=== PATIENT | female | born 1930 | race Caucasian/White ===

== ENCOUNTER → 2016-10-10 | Outpatient (CLI) | payer MEDICARE, OTHER ==
[2016-10-10 11:19] LABS: CH 30.8; CHCM 32.9; HCT 38.1 % (34.0-46.0); HDW 2.79; HGB 12.4 gm/dL (11.4-16.0); MCH 30.7 pg (25.0-35.0); MCHC 32.6 g/dL (31.0-37.0); MCV 94.1 fL (80.0-100.0); RBC 4.05 m/uL (3.80-5.40); RDW 12.9 % (11.5-15.5); WBC 4.3 k/uL (3.8-10.6)
[2016-10-10 11:44] LABS: ALT 30 U/L (9-52); AST 30 U/L (14-36); Alkaline Phosphatase 105 U/L (38-126); Anion Gap 10 mmol/L; Blood Urea Nitrogen 26 mg/dL (7-17); Calcium 9.5 mg/dL (8.4-10.2); Carbon Dioxide 27 mmol/L (22-30); Chloride 103 mmol/L (98-107); Glucose 101 mg/dL (74-99); Non-African American GFR(MDRD) >60 (>60 ml/min/1.73 sqM); Potassium 4.2 mmol/L (3.5-5.1); Sodium 140 mmol/L (137-145); Total Bilirubin 0.7 mg/dL (0.2-1.3); Total Protein 7.4 g/dL (6.3-8.2)
--- NOTE | 2016-10-10 13:16 | XR ---
EXAMINATION TYPE: XR chest 2V DATE OF EXAM: 10/10/2016 11:22 AM COMPARISON: 09/09/2015 HISTORY: 85 year-old female right lung carcinoma TECHNIQUE: Frontal and lateral views FINDINGS: The heart is mildly enlarged. Atherosclerotic arch calcifications. Mild diffuse interstitial prominen ce and hyperinflation with increased retrosternal clear space. Surgical clips at the right hilum. No consolidation or pleural effusion. Anterior endplate spondylosis in the thoracic spine. IMPRESSION: Cardiomegaly and COPD. No acute process seen.
== END | disposition home or self-care (01) ==
LOC: LABWHC1 10:57
PROVIDERS: ATTEND Thoracic Surgery (Cardiothoracic Vascular Surgery)
DX: C34.11 Malignant neoplasm of upper lobe, right bronchus or lung (principal); I51.7 Cardiomegaly; J44.9 Chronic obstructive pulmonary disease, unspecified
CPT/HCPCS: 36415; 71020; 80053; 85027

== ENCOUNTER 2017-07-15 08:32 | Observation (INO) | payer MEDICARE, BC ==
[2017-07-15] MEDS ORDERED: SODIUM CHLORIDE 0.9% 1,000 ML IV STA (09:10)
--- NOTE | 2017-07-15 09:14 | ED ---
Arrhythmia/Palpitations HPI - General Chief Complaint: Arrhythmia/Palpitations Stated Complaint: Fluttering heart Time Seen by Provider: 07/15/17 08:55 Source: patient, family, RN notes reviewed Mode of arrival: wheelchair Limitations: no limitations - History of Present Illness Initial Comments: This is a 86-year-old female with a history of thyroid disease and palpitations who is brought in today because of increasing palpitations she also states he was having some back pain. She does admit that she was shoveling snow yesterday but before that she felt hot. She denies any cough or phlegm production chills or sweats. No dysuria hematuria. She does relate that a lot of her symptoms back to her last year. She also relates that she' s had some intermittent point he like pain to the anterior left leg which goes down to the big toe at times. This is been going on for quite some time. MD Complaint: palpitations - Related Data Home Medications Medication Instructions Recorded Confirmed Aspirin 81 mg PO DAILY 07/20/14 07/15/17 Atenolol [Tenormin] 25 mg PO QAM 07/20/14 07/15/17 Jazz [place]/Linoleic/Gamoleni 1,300 mg PO DAILY 07/20/14 07/15/17 [Evening [place] 1,000 mg Sftg] Pravastatin Sodium [Pravachol] 40 mg PO DAILY 07/20/14 07/15/17 Levothyroxine Sodium [Synthroid] 112 mcg PO DAILY 07/15/17 07/15/17 Allergies Allergy/AdvReac Type Severity Reaction Status Date / Time No Known Allergies Allergy Verified 07/15/17 09:00 Review of Systems ROS Statement: Those systems with pertinent positive or pertinent negative responses have been documented in the HPI. ROS Other: All systems not noted in ROS Statement are negative. Past Medical History Past Medical History: Cancer, Hyperlipidemia, Thyroid Disorder Additional Past Medical History / Comment(s): HEART FLUTTERS History of Any Multi-Drug Resistant Organisms: None Reported Additional Past Surgical History / Comment(s): LUNG- RIGHT LOBE REMOVED FROM CA , CATARACT Past Psychological History: No Psychological Hx Reported Smoking Status: Never smoker Past Alcohol Use History: None Reported Past Drug Use History: None Reported General Exam - General Exam Comments Initial Comments: This is a well-developed well-nourished awake alert oriented 3 female Limitations: no limitations General appearance: alert, anxious Head exam: Present: atraumatic, normocephalic, normal inspection Eye exam: Present: normal appearance, PERRL, EOMI. Absent: scleral icterus, conjunctival injection, periorbital swelling ENT exam: Present: normal exam, mucous membranes moist Neck exam: Present: normal inspection. Absent: tenderness, meningismus, lymphadenopathy Respiratory exam: Present: normal lung sounds bilaterally. Absent: respiratory distress, wheezes, rales, rhonchi, stridor Cardiovascular Exam: Present: normal rhythm, bradycardia, normal heart sounds. Absent: systolic murmur, diastolic murmur, rubs, gallop, clicks GI/Abdominal exam: Present: soft, normal bowel sounds. Absent: distended, tenderness, guarding, rebound, rigid Extremities exam: Present: normal inspection, full ROM, normal capillary refill. Absent: tenderness, pedal edema, joint swelling, calf tenderness Back exam: Present: normal inspection Neurological exam: Present: alert, oriented X3, CN II-XII intact Psychiatric exam: Present: normal affect, normal mood, anxious Skin exam: Present: warm, dry, intact, normal color. Absent: rash Course Vital Signs 07/15/17 07/15/17 07/15/17 08:35 09:10 10:10 Temperature 97.0 F L Pulse Rate 57 L 55 L 60 Respiratory 20 18 18 Rate Blood Pressure 207/90 197/91 177/82 O2 Sat by Pulse 99 99 96 Oximetry 07/15/17 07/15/17 11:58 13:20 Temperature 97 F L Pulse Rate 52 L 60 Respiratory 20 18 Rate Blood Pressure 198/87 199/86 O2 Sat by Pulse 100 100 Oximetry - Reevaluation(s) Reevaluation #1: 07/15/17 14:34 Repeat EKG shows a sinus rhythm a 63. Interval 132 QRS duration 80 QT since QTC of 380/397 to change seen from the earlier one. EKG Findings - EKG Results: EKG: interpreted by RENETTA ([place] [address] QRS duration 90 QT since QTC 386/382 st-t wave changes) Medical Decision Making - Medical Decision Making I did reevaluate patient several occasions she did have an episode of bradycardia with jaw pain and pain to her back she stated. She will be admitted I did discuss case with patient family as well as with Dr. Womack who did come to the emergency department see the patient. - Lab Data Result diagrams: 07/15/17 09:04 07/15/17 09:04 Lab Results 07/15/17 07/15/17 07/15/17 Range/Units 09:04 09:04 09:04 WBC 4.5 (3.8-10.6) k/uL RBC 4.30 (3.80-5.40) m/uL Hgb 12.7 (11.4-16.0) gm/dL Hct 39.0 (34.0-46.0) % MCV 90.7 (80.0-100.0) fL MCH 29.7 (25.0-35.0) pg MCHC 32.7 (31.0-37.0) g/dL RDW 12.7 (11.5-15.5) % Plt Count 189 (150-450) k/uL Neutrophils % 72 % Lymphocytes % 18 % Monocytes % 6 % Eosinophils % 2 % Basophils % 0 % Neutrophils # 3.3 (1.3-7.7) k/uL Lymphocytes # 0.8 L (1.0-4.8) k/uL Monocytes # 0.3 (0-1.0) k/uL Eosinophils # 0.1 (0-0.7) k/uL Basophils # 0.0 (0-0.2) k/uL PT (9.0-12.0) sec INR (<1.2) APTT (22.0-30.0) sec Sodium 142 (137-145) mmol/L Potassium 4.5 (3.5-5.1) mmol/L Chloride 103 (98-107) mmol/L Carbon Dioxide 28 (22-30) mmol/L Anion Gap 11 mmol/L BUN 20 H (7-17) mg/dL Creatinine 0.70 (0.52-1.04) mg/dL Est GFR (MDRD) Af Amer >60 (>60 ml/min/1.73 sqM) Est GFR (MDRD) Non-Af >60 (>60 ml/min/1.73 sqM) Glucose 102 H (74-99) mg/dL Uric Acid (3.7-7.4) mg/dL Calcium 10.1 (8.4-10.2) mg/dL Magnesium 2.0 (1.6-2.3) mg/dL Total Bilirubin 0.5 (0.2-1.3) mg/dL AST 30 (14-36) U/L ALT 33 (9-52) U/L Alkaline Phosphatase 98 (38-126) U/L Total Creatine Kinase 143 H (30-135) U/L CK-MB (CK-2) 1.9 (0.0-2.4) ng/mL CK-MB (CK-2) Rel Index 1.3 Troponin I <0.012 (0.000-0.034) ng/mL Total Protein 6.8 (6.3-8.2) g/dL Albumin 4.3 (3.5-5.0) g/dL TSH 0.170 L (0.465-4.680) mIU/L Free T4 1.54 (0.78-2.19) ng/dL 07/15/17 07/15/17 Range/Units 09:04 09:04 WBC (3.8-10.6) k/uL RBC (3.80-5.40) m/uL Hgb (11.4-16.0) gm/dL Hct (34.0-46.0) % MCV (80.0-100.0) fL MCH (25.0-35.0) pg MCHC (31.0-37.0) g/dL RDW (11.5-15.5) % Plt Count (150-450) k/uL Neutrophils % % Lymphocytes % % Monocytes % % Eosinophils % % Basophils % % Neutrophils # (1.3-7.7) k/uL Lymphocytes # (1.0-4.8) k/uL Monocytes # (0-1.0) k/uL Eosinophils # (0-0.7) k/uL Basophils # (0-0.2) k/uL PT 9.7 (9.0-12.0) sec INR 1.0 (<1.2) APTT 24.0 (22.0-30.0) sec Sodium (137-145) mmol/L Potassium (3.5-5.1) mmol/L Chloride (98-107) mmol/L Carbon Dioxide (22-30) mmol/L Anion Gap mmol/L BUN (7-17) mg/dL Creatinine (0.52-1.04) mg/dL Est GFR (MDRD) Af Amer (>60 ml/min/1.73 sqM) Est GFR (MDRD) Non-Af (>60 ml/min/1.73 sqM) Glucose (74-99) mg/dL Uric Acid 4.2 (3.7-7.4) mg/dL Calcium (8.4-10.2) mg/dL Magnesium (1.6-2.3) mg/dL Total Bilirubin (0.2-1.3) mg/dL AST (14-36) U/L ALT (9-52) U/L Alkaline Phosphatase (38-126) U/L Total Creatine Kinase (30-135) U/L CK-MB (CK-2) (0.0-2.4) ng/mL CK-MB (CK-2) Rel Index Troponin I (0.000-0.034) ng/mL Total Protein (6.3-8.2) g/dL Albumin (3.5-5.0) g/dL TSH (0.465-4.680) mIU/L Free T4 (0.78-2.19) ng/dL - Radiology Data Radiology results: report reviewed (I did review the imaging and reports no acute findings.), image reviewed Disposition Clinical Impression: Palpitations, Bradycardia, Atypical chest pain Disposition: ADMITTED IP TO THIS [facility] Condition: Stable Referrals: Andrea An MD [Primary Care Provider] - 1-2 days
[2017-07-15 09:23] LABS: Basophils % (A) 0 %; Eosinophils # (A) 0.1 k/uL (0-0.7); Eosinophils % (A) 2 %; HGB 12.7 gm/dL (11.4-16.0); Lymphocytes # (A) 0.8 k/uL (1.0-4.8); Lymphocytes % (A) 18 %; MCH 29.7 pg (25.0-35.0); MCHC 32.7 g/dL (31.0-37.0); MCV 90.7 fL (80.0-100.0); Mean Platelet Volume 8.1; Monocytes # (A) 0.3 k/uL (0-1.0); Monocytes % (A) 6 %; Neutrophils # (A) 3.3 k/uL (1.3-7.7); Neutrophils % (A) 72 %; Platelet Count 189 k/uL (150-450); RDW 12.7 % (11.5-15.5); WBC 4.5 k/uL (3.8-10.6)
[2017-07-15 09:33] LABS: ALT 33 U/L (9-52); AST 30 U/L (14-36); Albumin 4.3 g/dL (3.5-5.0); Alkaline Phosphatase 98 U/L (38-126); Anion Gap 11 mmol/L; Blood Urea Nitrogen 20 mg/dL (7-17); Calcium 10.1 mg/dL (8.4-10.2); Carbon Dioxide 28 mmol/L (22-30); Chloride 103 mmol/L (98-107); Glucose 102 mg/dL (74-99); Potassium 4.5 mmol/L (3.5-5.1); Sodium 142 mmol/L (137-145); Total Bilirubin 0.5 mg/dL (0.2-1.3); Total Protein 6.8 g/dL (6.3-8.2)
[2017-07-15 09:39] LABS: Prothrombin Time 9.7 sec (9.0-12.0)
[2017-07-15 09:48] LABS: Creatine Kinase 143 U/L (30-135)
--- NOTE | 2017-07-15 09:52 | XR ---
EXAMINATION TYPE: XR chest 2V DATE OF EXAM: 07/15/2017 COMPARISON: Prior chest x-ray October 10, 2016 HISTORY: Dysrhythmia per order. TECHNIQUE: Frontal and lateral views of the chest are obtained. FINDINGS: There is chronic parenchymal change without suspicious focal air space opacity, pleural ef fusion, or pneumothorax seen. Surgical clips right hilar level are redemonstrated. The cardiac silhou ette size remains enlarged with atherosclerotic change in aortic knob. The osseous structures are d emineralized. There is multilevel spurring in the spine. IMPRESSION: Chronic changes and cardiomegaly without acute pulmonary process. No significant change from prior.
--- NOTE | 2017-07-15 09:56 | XR ---
EXAMINATION TYPE: XR lumbosacral spine min 4V DATE OF EXAM: 07/15/2017 CLINICAL HISTORY: Low back pain TECHNIQUE: Frontal, lateral, and oblique images of the lumbar spine are obtained. COMPARISON: None FINDINGS: Osseous structures are demineralized. There is underlying S-shaped scoliotic curvature. Th ere are 5 lumbar type vertebral bodies identified. The lumbar spine shows satisfactory alignment wit hout evidence of acute fracture or dislocation. Mild anterior wedging L1 level is present there is mo derate to severe disc space narrowing L3-L4 level and mild to moderate disc space narrowing L4-L5 and L5-S1 levels. Moderate to severe multilevel anterior and lateral spurring is seen most prominent lef t L3-L4 level. Oblique images are limited due to underlying scoliotic curvature. Facet arthropathy lo wer lumbar levels is seen. Spinous process hypertrophy is noted. Vascular calcification of overlying abdominal aorta is seen. IMPRESSION: Demineralization with scoliotic curvature and multilevel degenerative changes as detailed above. No acute fracture or dislocation is felt present.
[2017-07-15 10:01] LABS: Creatine Kinase MB 1.9 ng/mL (0.0-2.4); Troponin I <0.012 ng/mL (0.000-0.034)
[2017-07-15] MEDS ORDERED: SODIUM CHLORIDE 0.9% 500 ML IV STA (11:31)
[2017-07-15 11:53] LABS: T4, Free (Free Thyroxine) 1.54 ng/dL (0.78-2.19)
[2017-07-15] MEDS ORDERED: NITROGLYCERIN SL TABS 0.4 MG TAB SUBLINGUAL PRN (16:17)
[2017-07-15] MEDS: NITROGLYCERIN OINT 1 INCH/GM PACKET TOPICAL SCH (16:49)
[2017-07-15] MEDS ORDERED: ATENOLOL 25 MG TAB PO STA (18:07)
[2017-07-15 18:08] LABS: Creatine Kinase MB 1.5 ng/mL (0.0-2.4); Troponin I 0.015 ng/mL (0.000-0.034)
[2017-07-15] MEDS: hydrALAZINE HCL 25 MG TAB PO PRN (18:37)
[2017-07-15] MEDS ORDERED: ACETAMINOPHEN TAB 325 MG TAB PO PRN (19:36)
[2017-07-15 21:53] LABS: Creatine Kinase MB 1.7 ng/mL (0.0-2.4); Troponin I 0.015 ng/mL (0.000-0.034)
[2017-07-16] MEDS: NITROGLYCERIN OINT 1 INCH/GM PACKET TOPICAL SCH ×3 (00:33→13:03)
[2017-07-16 05:34] LABS: Cholesterol 183 mg/dL (<200); HDL Cholesterol 62 mg/dL (40-60); LDL Cholesterol,Calculated 97 mg/dL (0-99); Triglycerides 119 mg/dL (<150)
[2017-07-16] MEDS ORDERED: LEVOTHYROXINE 88 MCG TAB PO SCH (06:30)
[2017-07-16 07:30] VITALS: RESP 18
[2017-07-16] MEDS: PRAVASTATIN SODIUM 40 MG TAB PO SCH ×2 (08:22→08:24)
[2017-07-16] MEDS ORDERED: HEPARIN SODIUM,PORCINE 5,000 UNIT/ML 1 ML VIAL SQ SCH (09:00)
[2017-07-16] MEDS ORDERED: ATENOLOL 12.5 MG TAB PO SCH (09:00)
[2017-07-16] MEDS ORDERED: ASPIRIN 325 MG TAB PO SCH (09:00)
[2017-07-16] MEDS ORDERED: FAMOTIDINE 20 MG TAB PO SCH (09:00)
[2017-07-16] MEDS ORDERED: ASPIRIN 81 MG PO SCH (09:00)
[2017-07-16] MEDS: hydrALAZINE HCL 25 MG TAB PO PRN (09:38)
[2017-07-16 11:17] VITALS: TEMP 98
[2017-07-16] MEDS ORDERED: amLODIPine 2.5 MG TAB PO SCH (12:30)
--- NOTE | 2017-07-16 12:53 | P.CRDCN ---
History of Present Illness Consult date: 07/16/17 History of present illness: Mrs. Varghese is a pleasant 86-year-old female past medical history significant for hypertension, dyslipidemia, paroxysmal tachycardia, hypothyroidism and anxiety. She follows with Dr. Sanchez in the office. We have been asked to see her in consultation for complaints of chest pain. She states this started on Saturday with feelings of fatigue in the morning. She carried on with her day and shoveled the steps at her home. Some time later in the day she developed palpitations. For this reason she presented to the hospital. Once she was here she had 3 episodes of sharp right shoulder pain that radiated to the right jaw. This was brief in nature and associated with dizziness. She denies shortness of breath, diaphoresis, nausea or vomiting. She also complains of pain/achiness to b/l breasts and thoracic region at night while she is laying in bed. Blood pressure on admission 200 systolic. EKG reveals sinus bradycardia with no evidence of ST or T-wave abnormalities. Chest xray is negative for an acute cardiopulmonary process. Laboratory data reviewed, hgb 12.7, plt 189, potassium 4.5, magnesium 2.0, creatinine 0.7, cardiac enzymes negative 3, TSH 0.170. Current cardiac medications include Tenormin 25 mg by mouth daily, aspirin 81 mg daily, Pravachol 40 mg daily. Most recent echocardiogram performed in the office November 2013 reveals moderate MR with normal ejection fraction. Most recent stress test performed in the office April 2012 was normal no evidence of reversible cardiac ischemia. Review of Systems At the time of my exam: CONSTITUTIONAL: Denies fever. Denies chills. EYES: Denies blurred vision. Denies vision changes. Denies eye pain. EARS, NOSE, MOUTH & THROAT: Denies headache. Denies sore throat. Denies ear pain. CARDIOVASCULAR: Denies chest pain. Denies shortness of breath. Denies orthopnea. Denies PND. Denies palpitations. RESPIRATORY: Denies cough. GASTROINTESTINAL: Denies abdominal pain. Denies diarrhea. Denies constipation. Denies nausea. Denies vomiting. MUSCULOSKELETAL: Denies myalgias. INTEGUMENTARY: Denies pruitis. Denies rash. NEUROLOGIC: Denies numbness. Denies tingling. Denies weakness. PSYCHIATRIC: Denies anxiety. Denies depression. ENDOCRINE: Denies fatigue. Denies weight change. Denies polydipsia. Denies polyurina. GENITOURINARY: Denies burning, hematuria or urgency with micturation. HEMATOLOGIC: Denies history of anemia. Denies bleeding. Past Medical History Past Medical History: Cancer, Hyperlipidemia, Hypertension, Osteoarthritis (OA) , Thyroid Disorder Additional Past Medical History / Comment(s): "HEART FLUTTERS", 1998 rt lung cancer History of Any Multi-Drug Resistant Organisms: None Reported Additional Past Surgical History / Comment(s): rt upper lobectomy d/t CA, CATARACT, egd/colonoscopy, rt knee arthrosocpy Past Anesthesia/Blood Transfusion Reactions: No Reported Reaction Smoking Status: Never smoker - Past Family History Father Family Medical History: Cancer Mother Family Medical History: Cancer Additional Family Medical History / Comment(s): ovarian/colon cancer Medications and Allergies Home Medications Medication Instructions Recorded Confirmed Type Aspirin 81 mg PO DAILY 07/20/14 07/15/17 History Atenolol [Tenormin] 25 mg PO QAM 07/20/14 07/15/17 History Jazz [place]/Linoleic/Gamoleni 1,300 mg PO DAILY 07/20/14 07/15/17 History [Evening [place] 1,000 mg Sftg] Pravastatin Sodium [Pravachol] 40 mg PO DAILY 07/20/14 07/15/17 History Levothyroxine Sodium [Synthroid] 112 mcg PO DAILY 07/15/17 07/15/17 History Allergies Allergy/AdvReac Type Severity Reaction Status Date / Time No Known Allergies Allergy Verified 07/15/17 09:00 Physical Exam Vitals: Vital Signs Temp Pulse Pulse Resp BP BP BP 07/16/17 11:16 98.0 F 55 L 18 151/59 07/16/17 09:42 171/74 07/16/17 08:00 18 07/16/17 07:29 97.7 F 53 L 18 175/70 07/16/17 03:41 16 07/16/17 03:39 97.8 F 53 L 16 151/68 07/15/17 23:40 98.2 F 58 L 16 151/73 07/15/17 23:38 16 07/15/17 20:00 98.3 F 66 16 145/71 07/15/17 18:47 20 07/15/17 17:53 97.6 F 20 200/87 07/15/17 17:45 164/74 07/15/17 17:23 190/81 07/15/17 16:41 97.7 F 65 14 206/91 07/15/17 13:20 60 18 199/86 Pulse Ox 07/16/17 11:16 98 07/16/17 09:42 07/16/17 08:00 07/16/17 07:29 97 07/16/17 03:41 07/16/17 03:39 98 07/15/17 23:40 97 07/15/17 23:38 07/15/17 20:00 97 07/15/17 18:47 07/15/17 17:53 97 07/15/17 17:45 07/15/17 17:23 07/15/17 16:41 100 07/15/17 13:20 100 Intake and Output 07/15/17 07/16/17 07/16/17 22:59 06:59 14:59 Intake Total 240 440 Balance 240 440 Intake: Oral 240 240 Other 200 Other: # Voids 1 Blood pressure 151/59 heart rate 55 GENERAL: This is a 86-year-old female in no apparent distress at the time of my examination. HEENT: Head is atraumatic, normocephalic. Pupils are equal, round. Sclerae anicteric. Conjunctivae are clear. Mucous membranes of the mouth are moist. Neck is supple. There is no jugular venous distention. No carotid bruit is heard. LUNGS: Clear to auscultation no wheezes, rales or rhonchi. No chest wall tenderness is noted on palpation or with deep breathing. HEART: Regular rate and rhythm with systolic ejection murmur, no rubs or gallops. S1 and S2 heard. ABDOMEN: Soft, nontender. Bowel sounds are heard. No organomegaly noted. EXTREMITIES: No evidence of peripheral edema and no calf tenderness noted. VASCULAR: Radial and dorsalis pedis pulses palpated, no evidence of clubbing. NEUROLOGIC: Patient is awake, alert and oriented x3. Results 07/15/17 09:04 07/15/17 09:04 Cardiac Enzymes 07/15/17 07/15/17 Range/Units 17:13 21:03 CK-MB (CK-2) 1.5 1.7 (0.0-2.4) ng/mL Troponin I 0.015 0.015 (0.000-0.034) ng/mL Lipids 07/15/17 Range/Units 09:04 Triglycerides 119 (<150) mg/dL Cholesterol 183 (<200) mg/dL HDL Cholesterol 62 H (40-60) mg/dL Current Medications Generic Name Dose Route Start Last Admin Trade Name Freq PRN Reason Stop Dose Admin Acetaminophen 650 mg 07/15/17 19:36 Tylenol Tab PO Q4HR PRN Fever and/ or Pain Aspirin 81 mg 07/16/17 09:00 07/16/17 08:22 Aspirin PO 81 mg DAILY ARTEMIO Administration Atenolol 12.5 mg 07/16/17 09:00 07/16/17 08:20 Tenormin PO Not Given QAM [facility] Famotidine 20 mg 07/16/17 09:00 07/16/17 08:22 Pepcid PO Not Given DAILY [facility] Heparin Sodium (Porcine) 5,000 unit 07/16/17 09:00 07/16/17 08:23 Heparin SQ Not Given Q12HR [facility] Levothyroxine Sodium 88 mcg 07/16/17 06:30 07/16/17 06:13 Synthroid PO 88 mcg 0630 [facility] Administration Nitroglycerin 0.4 mg 07/15/17 16:17 Nitrostat SUBLINGUAL Q5M PRN Chest Pain Nitroglycerin 0.5 inch 07/15/17 18:00 07/16/17 05:51 Nitro-Bid Oint TOPICAL Not Given Q6HR [facility] Pravastatin Sodium 40 mg 07/16/17 09:00 07/16/17 08:24 Pravachol PO Not Given DAILY [facility] Intake and Output 07/15/17 07/16/17 07/16/17 22:59 06:59 14:59 Intake Total 240 440 Balance 240 440 Intake: Oral 240 240 Other 200 Other: # Voids 1 07/15/17 09:04 07/15/17 09:04 Assessment and Plan Assessment: ASSESSMENT 1. Palpitations, history of paroxysmal non-sustained SVT and PVC's. Takes tenormin daily. 2. Chest pain, atypical with negative cardiac enzymes and normal EKG 3. Hypertension, accelerated 4. Dyslipidemia, maintained on pravastatin 5. Hypothyroidism, uncontrolled 6. Anxiety, history of PLAN Acute coronary event has been ruled out. Chest pain atypical for cardiac etiology, sounds more musckuloskeletal in nature. Add small dose of amlodipine to daily regimen. Advised her to take her blood pressure daily in the morning and document for review per Dr. Abraham. Follow up with Dr. Abraham in 1-2 weeks for re-evaluation of blood pressure as well as outpatient cardiac testing. Continue aspirin, atenolol and pravastatin as was previously ordered. Palpitations may be related to uncontrolled hypothyroidsim as well as component of anxiety. Thyroid management per primary team. Thank you kindly for this consultation. Nurse Practitioner note has been reviewed, I agree with a documented findings and plan of care. Patient was seen and examined.
[2017-07-16 13:26] VITALS: BP 138/62; PULSE 64
--- NOTE | 2017-07-16 17:07 | P.HPIM ---
History of Present Illness H&P Date: 07/15/17 Chief Complaint: CP, Palpitation, HTN, Hyperlipidemia, Hypothyroidism and L big Toe pain. 86-year-old female [address] An's patient who seen Dr. Hall with past medical history of hypertension hyperlipidemia hypothyroidism who had mild arrhythmia with palpitation on and off who presented to the emergency department at [facility] with palpitation on and off for the last few days and slightly worsening discomfort with chest tightness and pressure radiating to the right shoulder blade and wrapping up more on the right side worsening with deep inspiration and exertion. Her workup in the emergency room including EKG and heart monitor was normal with exception that she had severe bradycardia with recurrent PVC. With her current complaint patient was hospitalized to be seen cardiology continue rn cardiac rehab and might require longer-term rn cardiac rehab along with possible need for stress test. Review of Systems Constitutional: Reports fatigue, Reports malaise, Reports weakness, Denies as per HPI, Denies anorexia, Denies chills, Denies chronic headaches, Denies chronic pain, Denies daytime sleepiness, Denies fever, Denies lethargy, Denies night sweats, Denies poor appetite, Denies sweats, Denies weight gain, Denies weight loss Eyes: bilateral as per HPI Ears: bilateral: decreased hearing Ears, nose, mouth and throat: Reports mouth pain, Reports nasal discharge, Reports sinus pressure, Reports sore throat, Denies as per HPI, Denies ant. neck pain, Denies bleeding gums, Denies dental pain, Denies dysphagia, Denies epistaxis, Denies headache, Denies hoarseness, Denies nasal congestion, Denies neck fullness/pressure, Denies neck lump, Denies nose pain, Denies odynophagia, Denies post-nasal drip, Denies sinus pain, Denies swelling in mouth, Denies swelling in throat, Denies vertigo, Denies voice changes Cardiovascular: Reports chest pain, Reports decreased exercise tolerance, Reports dyspnea on exertion, Reports edema, Reports high blood pressure, Reports irregular heart beat, Reports leg edema, Reports lightheadedness, Reports palpitations, Reports paroxysmal nocturnal dyspnea, Reports shortness of breath, Denies as per HPI, Denies claudication, Denies orthopnea, Denies phlebitis, Denies rapid heart beat, Denies syncope Respiratory: Reports congestion, Reports dyspnea, Reports excessive sputum, Denies as per HPI, Denies cough, Denies cough with sputum, Denies hemoptysis, Denies home oxygen, Denies pain, Denies pain on inspiration, Denies pleurisy, Denies respiratory infections, Denies sleep apnea, Denies snoring, Denies wheezing Gastrointestinal: Reports abdominal pain, Reports bloating, Reports dyspepsia, Reports early satiety, Reports nausea, Denies as per HPI, Denies belching, Denies BRBPR, Denies change in bowel habits, Denies coffee ground emesis, Denies constipation, Denies diarrhea, Denies excessive gas, Denies heartburn, Denies hematemesis, Denies hematochezia, Denies indigestion, Denies jaundice, Denies lactose intolerance, Denies loss of appetite, Denies melena, Denies vomiting Genitourinary: Reports dysuria, Reports urinary frequency, Denies as per HPI, Denies abnormal vaginal bleeding, Denies decreased libido, Denies difficulty conceiving, Denies difficulty voiding, Denies dysmenorrhea, Denies dyspareunia, Denies flank pain, Denies genital sores, Denies hematuria, Denies hot flashes, Denies incomplete emptying, Denies kidney stones, Denies menorrhagia, Denies mixed incontinence, Denies nocturia, Denies pelvic pain, Denies post void dribbling, Denies , Denies prolapse symptoms, Denies stress incontinence , Denies urge incontinence, Denies urgency, Denies vaginal discharge, Denies vaginal dryness, Denies vaginal itching, Denies vaginal odor Musculoskeletal: Reports gait dysfunction, Reports leg numbness/tingling, Reports limitation of motion, Reports low back pain, Reports muscle cramps, Reports muscle weakness, Reports myalgias, Reports neck pain, Reports neck stiffness, Denies as per HPI, Denies arm numbness/tingling, Denies atrophy, Denies fractures, Denies frequent falls, Denies hot joints, Denies loss of height, Denies morning stiffness, Denies prior amputations, Denies redness of joints, Denies shooting arm pain, Denies shooting leg pain Musculoskeletal: bilateral: ankle pain, ankle stiffness, ankle swelling Integumentary: Reports pruritus, Reports rash, Denies as per HPI, Denies acne, Denies boils, Denies brittle nails, Denies change in hair/nails, Denies color changes, Denies darkening of skin, Denies depigmentation, Denies dryness, Denies foot/leg ulcers, Denies growths, Denies hirsutism, Denies lesions, Denies onychomycosis, Denies sores, Denies striae, Denies unusual bruising, Denies wounds Neurological: Reports numbness, Reports paresthesias, Reports tingling, Denies as per HPI, Denies aphasia, Denies ataxia, Denies balance difficulties, Denies burning pain, Denies change in mentation, Denies change in smell/taste, Denies change in speech, Denies confusion, Denies convulsions, Denies double vision, Denies gait dysfunction, Denies head injury, Denies headaches, Denies hearing difficulties, Denies lack of coordination, Denies loss of vision, Denies memory loss, Denies migraines, Denies motor disturbance, Denies paralysis, Denies seizures, Denies sensory deficit, Denies spasticity, Denies syncope, Denies tic , Denies transient paralysis, Denies tremors, Denies vertigo, Denies weakness, Denies visual changes Psychiatric: Reports anhedonia, Reports anxiety, Reports anxiety attacks, Reports sleep disturbances, Denies as per HPI, Denies change in appetite, Denies change in libido, Denies change in sleep habits, Denies confusion, Denies depression, Denies difficulty concentrating, Denies disorientation, Denies hallucinations, Denies hopelessness, Denies hypersomnia, Denies insomnia , Denies irritability, Denies memory loss, Denies mood swings, Denies paranoia, Denies sadness/tearfulness, Denies suicidal ideation Endocrine: Reports fatigue, Reports palpitations, Reports polydipsia Hematologic/Lymphatic: Reports easy bruising, Denies as per HPI, Denies easy bleeding, Denies lymphadenopathy, Denies lymphedema, Denies thrombophilia Allergic/Immunologic: Reports allergic rhinitis, Reports anaphylaxis, Reports angioedema, Denies as per HPI, Denies gluten intolerance, Denies persistent infections, Denies seasonal allergies, Denies urticaria, Denies wheezing Past Medical History Past Medical History: Cancer, Hyperlipidemia, Hypertension, Osteoarthritis (OA) , Thyroid Disorder Additional Past Medical History / Comment(s): "HEART FLUTTERS", 1998 rt lung cancer History of Any Multi-Drug Resistant Organisms: None Reported Additional Past Surgical History / Comment(s): rt upper lobectomy d/t CA, CATARACT, egd/colonoscopy, rt knee arthrosocpy Past Anesthesia/Blood Transfusion Reactions: No Reported Reaction Smoking Status: Never smoker - Past Family History Father Family Medical History: Cancer Mother Family Medical History: Cancer Additional Family Medical History / Comment(s): ovarian/colon cancer Medications and Allergies Home Medications Medication Instructions Recorded Confirmed Type Aspirin 81 mg PO DAILY 07/20/14 07/15/17 History Atenolol [Tenormin] 25 mg PO QAM 07/20/14 07/15/17 History Jazz [place]/Linoleic/Gamoleni 1,300 mg PO DAILY 07/20/14 07/15/17 History [Evening [place] 1,000 mg Sftg] Pravastatin Sodium [Pravachol] 40 mg PO DAILY 07/20/14 07/15/17 History Levothyroxine Sodium [Synthroid] 88 mcg PO 0630 #30 tab 07/16/17 Rx amLODIPine [Norvasc] 2.5 mg PO DAILY #30 tab 07/16/17 Rx Allergies Allergy/AdvReac Type Severity Reaction Status Date / Time No Known Allergies Allergy Verified 07/15/17 09:00 Physical Exam Vitals: Vital Signs Temp Pulse Resp BP BP Pulse Ox 07/15/17 20:00 20 07/15/17 18:47 20 07/15/17 17:53 97.6 F 20 200/87 97 07/15/17 17:45 164/74 07/15/17 17:23 190/81 07/15/17 16:41 97.7 F 65 14 206/91 100 07/15/17 13:20 60 18 199/86 100 07/15/17 11:58 97 F L 52 L 20 198/87 100 07/15/17 10:10 60 18 177/82 96 07/15/17 09:10 55 L 18 197/91 99 07/15/17 08:35 97.0 F L 57 L 20 207/90 99 Intake and Output 07/15/17 07/15/17 07/15/17 06:59 14:59 22:59 Intake Total 240 Balance 240 Intake: Oral 240 Other: Weight 76.657 kg Patient Weight 07/16/17 06:59 Weight 76.657 kg - Constitutional General appearance: no average body habitus, cooperative, no disheveled, no mild distress, no morbidly obese, no acute distress, no obese, no severe distress, no thin - EENT Eyes: no abnormal pupil, no anicteric sclerae, no disc margins sharp, no edentulous, no EOMI, no PERRLA, no fundus normal, no photophobia, no dentition normal, no poor dentition, no ptosis, no scleral icterus, normal appearance ENT: hard of hearing, no hearing grossly normal, no NA/AT, normal oropharynx, no other, no pharyngeal erythema, no thrush, no tonsillar exudates, no tonsillar swelling Ears: bilateral: normal - Neck Neck: normal ROM Carotids: bilateral: upstroke normal Thyroid: negative: normal size - Respiratory Respiratory: bilateral: CTA, diminished, dullness - Cardiovascular Rhythm: irregularly irregular Abnormal Heart Sounds: systolic murmur, no diastolic murmur, no rub, no S3 Gallop, no S4 Gallop, no click, no other - Gastrointestinal General gastrointestinal: no absent bowel sounds, decreased bowel sounds, distended, no hepatomegaly, no hyperactive bowel sounds, no normal bowel sounds , no organomegaly, no rigid, scaphoid, no soft, no splenomegaly, no tenderness, no umbilical hernia, no ventral hernia - Integumentary Integumentary: no calor, no cellulitis, no cyanotic, no decreased turgor, no flushed, no jaundiced, normal, no normal turgor, pale, no rash, no ulcer - Neurologic Neurologic: CNII-XII intact - Musculoskeletal Musculoskeletal: gait normal, generalized weakness, no strength equal bilaterally, no right sided weakness, no left sided weakness - Psychiatric Psychiatric: A&O x's 3, appropriate affect, no intact judgment & insight Results CBC & Chem 7: 07/15/17 09:04 07/15/17 09:04 Labs: Abnormal Lab Results - Last 24 Hours (Table) 07/15/17 07/15/17 07/15/17 Range/Units 09:04 09:04 09:04 Lymphocytes # 0.8 L (1.0-4.8) k/uL BUN 20 H (7-17) mg/dL Glucose 102 H (74-99) mg/dL Total Creatine Kinase 143 H (30-135) U/L TSH 0.170 L (0.465-4.680) mIU/L 07/15/17 Range/Units 21:03 Lymphocytes # (1.0-4.8) k/uL BUN (7-17) mg/dL Glucose (74-99) mg/dL Total Creatine Kinase 138 H (30-135) U/L TSH (0.465-4.680) mIU/L Thrombosis Risk Factor Assmnt - DVT/VTE Prophylaxis DVT/VTE Prophylaxis: Pharmacologic Prophylaxis ordered, Mechanical Prophylaxis ordered Assessment and Plan Assessment: 1 Chest Pain: Very atypical, patient was admitted to the hospital continue rn cardiac rehab along with cardiac enzyme troponin and CK for the next 24 hours we'll consult cardiology and echocardiogram and our stress test might be indicated. 2 Palpitation and Arrhythmia: Patient was never diagnosed with A. fib continue to watch for any further bradycardia significant what happened in the emergency department and with her patient will require any pacemaker or not. 3 Hypertension: With more urgent blood pressure require 1 dose of hydralazine, patient was on metoprolol and if needed titrate the dose gradually. 4 Hyperlipidemia: Has been doing well on pravastatin 40 mg a day. 5 Hypothyroidism: On levothyroxine 112 g daily TSH free T4 will be done. 6 Big Toe Pain: With no sign of gout most likely mild local arrhythmia but will request uric acid to be done. 7 GI prophylaxis: will be on Pepcid 20 mg daily. 8 DVT Prophylaxis: Was started on heparin 5000 units subcutaneous twice a day. Code Status: Full code. Admit to the Hospital for Observation for 1-2 overnights.
--- NOTE | 2017-07-18 14:28 | P.DS ---
Providers Date of admission: 07/15/17 16:20 Expected date of discharge: 07/16/17 Attending physician: Pasha Womack Consults: 07/16/17 11:07 Consult Physician Routine Consulting Provider: Mikie Blake Consult Reason/Comments: CP Do you want consulting provider notified?: Yes [facility] Course: 86-year-old female [address] An's patient who seen Dr. Hall with past medical history of hypertension hyperlipidemia hypothyroidism who had mild arrhythmia with palpitation on and off who presented to the emergency department at [facility] with palpitation on and off for the last few days and slightly worsening discomfort with chest tightness and pressure radiating to the right shoulder blade and wrapping up more on the right side worsening with deep inspiration and exertion. Her workup in the emergency room including EKG and heart monitor was normal with exception that she had severe bradycardia with recurrent PVC. 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 2: Repeat troponins are 0.015, 0.015. Triglycerides 119, cholesterol 183, LDL 97, HDL 62. TSH is 0.170 and ear physician has adjusted her L-thyroxine to 88 mcg. Patient has been seen by joint sealer and they have recommended adding amlodipine 2.5 mg daily and continue atenolol 25 mg daily. Patient has history of SVT and follows with Dr. Dr. Abraham. Patient will be discharged home today in stable condition. Discharge diagnoses: 1 Chest Pain 2 Palpitation and Arrhythmia 3 Hypertension 4 Hyperlipidemia 5 Hypothyroidism 6 Big Toe Pain: With no sign of gout Discharge plan: Home Impression and plan of care have been directed as dictated by the signing physician. Sara Low nurse practitioner acting as scribe for signing physician. Patient Condition at Discharge: Good Plan - Discharge Summary Discharge Rx Participant: No New Discharge Prescriptions: New amLODIPine [Norvasc] 2.5 mg PO DAILY #30 tab Levothyroxine Sodium [Synthroid] 88 mcg PO 30 #30 tab Continue Jazz [place]/Linoleic/Gamoleni [Evening [place] 1,000 mg Sftg] 1,300 mg PO DAILY Pravastatin Sodium [Pravachol] 40 mg PO DAILY Atenolol [Tenormin] 25 mg PO QAM Aspirin 81 mg PO DAILY Discontinued Levothyroxine Sodium [Synthroid] 112 mcg PO DAILY Discharge Medication List Aspirin 81 mg PO DAILY 07/20/14 [History] Atenolol [Tenormin] 25 mg PO QAM 07/20/14 [History] Jazz [place]/Linoleic/Gamoleni [Evening [place] 1,000 mg Sftg] 1,300 mg PO DAILY 07/20/14 [History] Pravastatin Sodium [Pravachol] 40 mg PO DAILY 07/20/14 [History] Levothyroxine Sodium [Synthroid] 88 mcg PO 0630 #30 tab 07/16/17 [Rx] amLODIPine [Norvasc] 2.5 mg PO DAILY #30 tab 07/16/17 [Rx] Follow up Appointment(s)/Referral(s): Ngoc Abraham MD [STAFF PHYSICIAN] - 1 Week (Appointment is 10:45 am.) Andrea An MD [Primary Care Provider] - 1 Week Patient Instructions/Handouts: Chest Pain (GEN) Discharge Disposition: HOME SELF-CARE
== END 2017-07-16 14:14 | disposition home or self-care (01) ==
LOC: EC 08:32 → 3OBS 16:20
PROVIDERS: ADMIT Internal Medicine Geriatric Medicine; ATTEND Internal Medicine Geriatric Medicine
DX: R07.89 Other chest pain (principal); I49.9 Cardiac arrhythmia, unspecified; E78.5 Hyperlipidemia, unspecified; I10 Essential (primary) hypertension; E03.9 Hypothyroidism, unspecified; M79.675 Pain in left toe(s); M19.90 Unspecified osteoarthritis, unspecified site; Z79.82 Long term (current) use of aspirin; Z79.899 Other long term (current) drug therapy; Z85.118 Personal history of other malignant neoplasm of bronchus and lung; Z80.0 Family history of malignant neoplasm of digestive organs; Z80.41 Family history of malignant neoplasm of ovary
CPT/HCPCS: 99285 ×2; 96360 ×2; 36415; 93005; 84439; 80061; 80053; 84443; 82550; 82553; 83735; 84550; 84484; 85025; 85610; 85730; 72110; 71046; G0378 ×2

== ENCOUNTER 2018-11-10 11:04 | Emergency (ER) | payer MEDICARE, BC ==
[2018-11-10 11:43] VITALS: RESP 18
--- NOTE | 2018-11-10 12:06 | ED ---
General Adult HPI - General Chief complaint: Extremity Injury, Lower Stated complaint: rt foot pain Time Seen by Provider: 11/10/18 11:20 Source: patient, family, RN notes reviewed Mode of arrival: wheelchair Limitations: no limitations - History of Present Illness Initial comments: This is an 87-year-old female presents emergency Department complaining of right ankle pain on both sides as well as some medial foot pain. Patient states it started on October 29 and continues today. Patient states is very sharp in nature. Patient denies any injury that she knows of. Patient denies any direct trauma. Patient denies any area of redness and warmth. Patient states that she had lipomas removed on her upper thigh earlier in October. Patient denies any calf pain. Patient denies any fever chills. Patient denies any color changes related. Patient denies any knee or hip pain. - Related Data Home Medications Medication Instructions Recorded Confirmed Atenolol [Tenormin] 25 mg PO HS 07/20/14 11/10/18 Cholecalciferol [Vitamin D3 (25 1,000 unit PO HS 11/10/18 11/10/18 Mcg = 1000 Iu)] Levothyroxine Sodium [Synthroid] 88 mcg PO DAILY@0630 11/10/18 11/10/18 Previous Rx's Medication Instructions Recorded amLODIPine [Norvasc] 2.5 mg PO DAILY #30 tab 07/16/17 Allergies Allergy/AdvReac Type Severity Reaction Status Date / Time No Known Allergies Allergy Verified 11/10/18 12:06 Review of Systems ROS Statement: Those systems with pertinent positive or pertinent negative responses have been documented in the HPI. ROS Other: All systems not noted in ROS Statement are negative. Past Medical History Past Medical History: Cancer, Hyperlipidemia, Hypertension, Osteoarthritis (OA), Thyroid Disorder Additional Past Medical History / Comment(s): "HEART FLUTTERS", 1997 rt lung cancer History of Any Multi-Drug Resistant Organisms: None Reported Additional Past Surgical History / Comment(s): rt upper lobectomy d/t CA, CATARACT, egd/colonoscopy, rt knee arthrosocpy Past Anesthesia/Blood Transfusion Reactions: No Reported Reaction Past Psychological History: Depression Smoking Status: Never smoker Past Alcohol Use History: None Reported Past Drug Use History: None Reported - Past Family History Father Family Medical History: Cancer Mother Family Medical History: Cancer Additional Family Medical History / Comment(s): ovarian/colon cancer General Exam - General Exam Comments Initial Comments: GENERAL: Patient is well-developed and well-nourished. Patient is nontoxic and well- hydrated and is in no acute distress. ENT: Neck is soft and supple. No significant lymphadenopathy is noted. Oropharynx is clear. Moist mucous membranes. EYES: The sclera were anicteric and conjunctiva were pink and moist. Extraocular movements were intact and pupils were equal round and reactive to light. Eyelids were unremarkable. SKIN: Skin is clear with no lesions or rashes and otherwise unremarkable. NEUROLOGIC: Patient is alert and oriented x3. Cranial nerves II through XII are grossly intact. Motor and sensory are also intact. Normal speech, volume and content. Symmetrical smile. MUSCULOSKELETAL: Right ankle looks a little swollen bilaterally and is very tender on either malleolus as well as in the first metatarsal. Right calf is tender to palpation. DP pulses are normal bilaterally LYMPHATICS: No significant lymphadenopathy is noted PSYCHIATRIC: Normal psychiatric evaluation. Limitations: no limitations Course Vital Signs 11/10/18 11:36 Temperature 97.5 F L Pulse Rate 61 Respiratory 18 Rate Blood Pressure 175/70 O2 Sat by Pulse 98 Oximetry Medical Decision Making - Medical Decision Making Ultrasound of the right calf shows no DVT. X-ray of the ankle and foot show no acute normalities however there is a calcaneal spur. 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 Disposition Clinical Impression: Ankle sprain Disposition: HOME SELF-CARE Condition: Good Instructions (If sedation given, give patient instructions): Ankle Sprain (ED) Additional Instructions: Patient should use Aleve twice a day when necessary for pain. Patient should keep the Varinder wrap on during the day and Is patient prescribed a controlled substance at d/c from ED?: No Referrals: Andrea An MD [Primary Care Provider] - 1-2 days Time of Disposition: 14:00
--- NOTE | 2018-11-10 12:33 | XR ---
EXAMINATION TYPE: XR ankle complete RT DATE OF EXAM: 11/10/2018 CLINICAL HISTORY: Right ankle pain and swelling TECHNIQUE: Frontal, lateral and oblique images of the right ankle are obtained. COMPARISON: None. FINDINGS: Diffuse osseous demineralization is seen. Small plantar enthesophyte/heel spur present. Th ere is no acute fracture/dislocation evident in the right ankle. The ankle mortise appears within no rmal limits. The overlying soft tissue demonstrates minimal low ankle soft tissue swelling. IMPRESSION: Minimal soft tissue swelling over the distal ankle joint with no acute fracture or disloc ation in the right ankle.
--- NOTE | 2018-11-10 13:03 | US ---
EXAMINATION TYPE: US venous doppler duplex LE RT DATE OF EXAM: 11/10/2018 12:05 PM COMPARISON: NONE CLINICAL HISTORY: Pain. Right foot pain x 2 weeks following surgery removal of 2 right leg lipomas SIDE PERFORMED: Right TECHNIQUE: The lower extremity deep venous system is examined utilizing real time linear array sonog ada with graded compression, doppler sonography and color-flow sonography. VESSELS IMAGED: External Iliac Vein (EIV) Common Femoral Vein Deep Femoral Vein Greater Saphenous Vein * Femoral Vein Popliteal Vein Small Saphenous Vein * Proximal Calf Veins (* superficial vessels) Grayscale, color doppler, spectral doppler imaging performed of the deep veins of the right partially . There is normal flow, compressibility, vascular waveforms. Right Leg: Appears negative for DVT IMPRESSION: No sonographic evidence of deep venous thrombosis within the right lower extremity.
--- NOTE | 2018-11-10 13:44 | XR ---
EXAMINATION TYPE: XR foot complete RT DATE OF EXAM: 11/10/2018 COMPARISON: NONE HISTORY: Pain and swelling TECHNIQUE: Three views are submitted. FINDINGS: The osseous structures are intact. There is no acute fracture or dislocation. Joint spaces are p reserved. Diffuse osteopenia. Plantar calcaneal spur. Arthropathy first MTP joint. IMPRESSION: 1. No acute fracture or dislocation. If symptoms persist, follow-up exam in 7 to 10 days could be ob tained. 2. Arthropathy. 3. Plantar calcaneal spur.
[2018-11-10 14:31] VITALS: BP 174/90; PULSE 57; TEMP 98.6
== END 2018-11-10 14:31 | disposition home or self-care (01) ==
LOC: EC 11:04
DX: S93.401A Sprain of unspecified ligament of right ankle, initial encounter (principal); M77.31 Calcaneal spur, right foot; I10 Essential (primary) hypertension; E07.9 Disorder of thyroid, unspecified; Z79.899 Other long term (current) drug therapy; Z79.890 Hormone replacement therapy; Z85.118 Personal history of other malignant neoplasm of bronchus and lung; X58.XXXA Exposure to other specified factors, initial encounter
CPT/HCPCS: 99284